=== PATIENT | male | born 1945 | race Caucasian/White ===

== ENCOUNTER 2021-04-15 08:21 | Emergency (ER) | payer OTHER ==
[~2021-04-15] VITALS: Ht 157.5 cm; Wt 55.0 kg
[~2021-04-15 08:21] MED LIST: LEVO50TA8 PO; TERA5CAP4 PO
[2021-04-15 11:06] VITALS: BP 154/84
== END 2021-04-15 11:06 | disposition home or self-care (01) ==
LOC: ER 08:21
DX: H53.8 Other visual disturbances (principal); R03.0 Elevated blood-pressure reading, without diagnosis of hypertension; Z86.16 Personal history of COVID-19
CPT/HCPCS: 99283

== ENCOUNTER 2021-07-24 09:19 | Emergency (ER) | payer OTHER ==
[~2021-07-24] VITALS: Ht 165.1 cm; Wt 73.0 kg
[2021-07-24] MEDS ORDERED: SODIUM CHLORIDE 0.9% 500 ML IV ONE (09:45)
[2021-07-24 10:02] LABS: BASOPHILS % 0.4 % (0.0-2.0); EOSINOPHILS % 1.9 % (0.0-5.0); HEMATOCRIT. 36.9 % (42.0-52.0); HEMOGLOBIN. 12.1 g/dL (14.0-18.0); LYMPHOCYTES % 14.8 % (20.0-50.0); MEAN CORPUSCULAR HEMOGLOBIN 30.6 pg (28.0-32.0); MEAN PLATELET VOLUME 7.1 fl (7.4-10.4); MONOCYTES % 5.8 % (2.0-8.0); NEUTROPHILS % 77.1 % (40.0-76.0); PLATELET 197 x1000/uL (130-400); RED BLOOD CELL COUNT 3.97 mill/uL (4.7-6.1); RED CELL DISTRIBUTION WIDTH 15.5 % (11.6-14.6)
[2021-07-24 10:17] LABS: CHLORIDE 94 mEq/L (98-107)
[2021-07-24 15:01] VITALS: BP 119/64
== END 2021-07-24 15:04 | disposition home or self-care (01) ==
LOC: ER 09:19
DX: E86.0 Dehydration (principal); R55 Syncope and collapse; Z86.19 Personal history of other infectious and parasitic diseases
CPT/HCPCS: 36415; 71045; 80053; 83880; 84484; 85025; 93005; 96360; 99285; J7030

== ENCOUNTER 2023-05-01 12:44 | Inpatient (IN) | payer OTHER ==
[~2023-05-01] VITALS: Ht 160 cm; Wt 55.9 kg
[2023-05-01 14:08] LABS: BASOPHILS % 0.4 % (0.0-2.0); EOSINOPHILS % 0.6 % (0.0-5.0); HEMATOCRIT. 33.4 % (42.0-52.0); HEMOGLOBIN. 11.3 g/dL (14.0-18.0); LYMPHOCYTES % 9.9 % (20.0-50.0); MEAN CORPUSCULAR VOLUME 94.2 fL (80.0-94.0); MEAN PLATELET VOLUME 7.2 fl (7.4-10.4); MONOCYTES % 7.7 % (2.0-8.0); NEUTROPHILS % 81.4 % (40.0-76.0); PLATELET 147 x1000/uL (130-400); RED BLOOD CELL COUNT 3.54 mill/uL (4.7-6.1); RED CELL DISTRIBUTION WIDTH 15.4 % (11.6-14.6)
[2023-05-01 14:13] LABS: CHLORIDE 74 mEq/L (98-107)
[2023-05-01 14:31] LABS: CLARITY URINE TURBID (CLEAR); COLOR URINE YELLOW (YELLOW); KETONES URINE NEGATIVE (NEGATIVE); LEUKOCYTE ESTERASE URINE NEGATIVE (NEGATIVE); NITRITE URINE NEGATIVE (NEGATIVE); OCCULT BLOOD URINE 3+ (NEGATIVE); PROTEIN URINE 2+ (NEGATIVE); SPECIFIC GRAVITY URINE 1.011 (1.005-1.030); UROBILINOGEN URINE 0.2 E.U./dL (0.2-1.0)
[2023-05-01] MEDS ORDERED: METHYLPREDNISOLONE SOD SUCC 125 MG/2 ML VIAL IV STA (14:41)
[2023-05-01] MEDS ORDERED: IPRATROPIUM BROMIDE (0.02%) 0.5MG/2.5ML NEB HHN STA (14:41)
[2023-05-01] MEDS ORDERED: ALBUTEROL (0.083%) 2.5MG/3ML NEB HHN STA (14:41)
[2023-05-01 15:13] LABS: BG BASE EXCESS 13.3 mmol/L (-2.0-2.0); BG CARBOXYHEMOGLOBIN 1.3 % (0.5-1.5); BG DEOXYHEMOGLOBIN 3.1 % (0.0-5.0); BG HCO3 ACT 42.2 mmol/L (22.0-26.0); BG OXYGEN SATURATION 96.9 % (92.0-98.5); BG OXYHEMOGLOBIN 95.6 % (94.0-97.0); BG PCO2 78.9 mmHg (35.0-45.0); BG PH 7.346 (7.350-7.450); BG PO2 100.8 mmHg (75.0-100.0); BG SAMPLE SITE RIGHT RADIAL; BG TOTAL HEMOGLOBIN 12.2 g/dL (12.0-18.0); BG VENT MODE MASK - BIPAP
[2023-05-01] MEDS ORDERED: SODIUM CHLORIDE 0.9% 1,000 ML IV ONE (15:15)
[2023-05-01 19:05] LABS: BG BASE EXCESS 13.5 mmol/L (-2.0-2.0); BG FRACTION INSPIRED OXYGEN 32; BG HCO3 ACT 42.7 mmol/L (22.0-26.0); BG METHEMOGLOBIN 0.1 % (0.0-1.5); BG OXYGEN SATURATION 88.8 % (92.0-98.5); BG OXYHEMOGLOBIN 86.9 % (94.0-97.0); BG PCO2 79.4 mmHg (35.0-45.0); BG PH 7.348 (7.350-7.450); BG SAMPLE SITE LEFT RADIAL; BG TOTAL HEMOGLOBIN 13.1 g/dL (12.0-18.0); BG VENT MODE NASAL CANNULA
[2023-05-01] MEDS ORDERED: LORAZEPAM 2MG/ML CPJ IV PRN (19:15)
[2023-05-02] MEDS ORDERED: IPRATROPIUM/ALBUTEROL 0.5-3(2.5)MG/3ML NEB HHN PRN (08:30)
[2023-05-02] MEDS ORDERED: ACETAMINOPHEN 325MG TABLET PO PRN (08:30)
[2023-05-02] MEDS ORDERED: LEVOFLOXACIN 500MG PREMIX 100 ML IV SCH (09:00)
[2023-05-02 09:36] VITALS: BP 121/70
[2023-05-02 10:13] VITALS: BP 121/70
[2023-05-02] MEDS ORDERED: LORAZEPAM 0.5MG TABLET PO PRN (11:00)
[2023-05-02] MEDS: FAMOTIDINE 20MG TABLET PO SCH ×2 (11:12→21:20)
[2023-05-02] MEDS: ENOXAPARIN 40MG/0.4ML SYR SUBCUT SCH (11:13)
[2023-05-02] MEDS: LEVOTHYROXINE SODIUM 50MCG TABLET PO SCH (11:13)
[2023-05-02] MEDS: METHYLPREDNISOLONE SOD SUCC 40 MG/ML VIAL IV SCH ×3 (11:13→21:20)
[2023-05-02] MEDS: BUDESONIDE 0.5MG/2ML NEB HHN SCH (11:22)
[2023-05-02] MEDS: IPRATROPIUM/ALBUTEROL 0.5-3(2.5)MG/3ML NEB HHN SCH ×3 (11:23→20:07)
[2023-05-02 12:00] VITALS: BP 124/58
[2023-05-02 12:06] LABS: BASOPHILS % 0.1 % (0.0-2.0); EOSINOPHILS % 0.1 % (0.0-5.0); HEMATOCRIT. 34.9 % (42.0-52.0); HEMOGLOBIN. 11.6 g/dL (14.0-18.0); LYMPHOCYTES % 10.2 % (20.0-50.0); MEAN CORPUSCULAR HEMOGLOBIN 31.7 pg (28.0-32.0); MEAN CORPUSCULAR VOLUME 95.3 fL (80.0-94.0); MEAN PLATELET VOLUME 7.6 fl (7.4-10.4); MONOCYTES % 11.1 % (2.0-8.0); NEUTROPHILS % 78.5 % (40.0-76.0); PLATELET 163 x1000/uL (130-400); RED BLOOD CELL COUNT 3.67 mill/uL (4.7-6.1); RED CELL DISTRIBUTION WIDTH 15.8 % (11.6-14.6)
[2023-05-02 12:15] LABS: CHLORIDE 83 mEq/L (98-107)
[2023-05-02] MEDS ORDERED: HYDROCODONE/ACETAMINOPHEN 5/325MG TABLET PO PRN (14:30)
[2023-05-02] MEDS ORDERED: NALOXONE HCL 0.4MG/ML VIAL IV PRN (14:30)
[2023-05-02] MEDS: SODIUM CHLORIDE 0.9% 1,000 ML IV SCH (14:47)
[2023-05-02 16:00] VITALS: BP 121/63
[2023-05-02 19:19] LABS: CHLORIDE 83 mEq/L (98-107)
[2023-05-02 20:00] VITALS: BP 131/60
[2023-05-02] MEDS ORDERED: TERAZOSIN HCL 5MG CAPSULE PO SCH (21:00)
[2023-05-02] MEDS: TERAZOSIN HCL 5MG CAPSULE PO SCH (21:21)
[2023-05-02 22:00] VITALS: BP 84/33
[2023-05-02 23:13] LABS: CHLORIDE 83 mEq/L (98-107)
[2023-05-03] VITALS (12 sets, daily range): BP systolic 84–126; BP diastolic 36–66
[2023-05-03] MEDS: IPRATROPIUM/ALBUTEROL 0.5-3(2.5)MG/3ML NEB HHN SCH ×6 (00:11→20:39)
[2023-05-03] MEDS: BUDESONIDE 0.5MG/2ML NEB HHN SCH ×3 (00:11→20:40)
[2023-05-03] MEDS ORDERED: SODIUM CHLORIDE 0.9% 500 ML IV NR (00:45)
[2023-05-03] MEDS ORDERED: SODIUM CHLORIDE 0.9% 500 ML IV ONE (00:45)
[2023-05-03] MEDS: MIDODRINE HCL 5MG TABLET PO SCH ×3 (00:52→21:26)
[2023-05-03 01:54] LABS: CLARITY URINE CLEAR (CLEAR); COLOR URINE YELLOW (YELLOW); KETONES URINE NEGATIVE (NEGATIVE); LEUKOCYTE ESTERASE URINE NEGATIVE (NEGATIVE); NITRITE URINE NEGATIVE (NEGATIVE); OCCULT BLOOD URINE 3+ (NEGATIVE); PROTEIN URINE 2+ (NEGATIVE); UROBILINOGEN URINE 0.2 E.U./dL (0.2-1.0)
[2023-05-03 02:04] LABS: *AMPHETAMINES SCREEN URINE NEGATIVE (NEGATIVE); *BARBITURATES SCREEN URINE NEGATIVE (NEGATIVE); *BENZODIAZEPINES SCREEN URINE NEGATIVE (NEGATIVE); *COCAINE SCREEN URINE NEGATIVE (NEGATIVE); CANNABINOID URINE SCREEN NEGATIVE (NEGATIVE); METHADONE URINE SCREEN NEGATIVE (NEGATIVE); OPIATES URINE SCREEN PRESUMTIVE POSITIVE (NEGATIVE); PHENCYCLIDINE URINE SCREEN NEGATIVE (NEGATIVE)
[2023-05-03] MEDS: METHYLPREDNISOLONE SOD SUCC 40 MG/ML VIAL IV SCH ×4 (03:43→21:25)
[2023-05-03] MEDS ORDERED: LEVOTHYROXINE SODIUM 50MCG TABLET PO SCH (06:30)
[2023-05-03 06:36] LABS: HEMATOCRIT. 30.3 % (42.0-52.0); HEMOGLOBIN. 10.1 g/dL (14.0-18.0); MEAN CORPUSCULAR VOLUME 95.7 fL (80.0-94.0); MEAN PLATELET VOLUME 7.8 fl (7.4-10.4); PLATELET 141 x1000/uL (130-400); RED BLOOD CELL COUNT 3.17 mill/uL (4.7-6.1); RED CELL DISTRIBUTION WIDTH 15.8 % (11.6-14.6)
[2023-05-03 06:42] LABS: CHLORIDE 88 mEq/L (98-107)
[2023-05-03 06:58] LABS: HDL CHOLESTEROL 93 mg/dL (40-59); LDL CHOLESTEROL 63 mg/dL (5-100)
[2023-05-03] MEDS: FAMOTIDINE 20MG TABLET PO SCH ×2 (08:44→21:25)
[2023-05-03] MEDS: ENOXAPARIN 40MG/0.4ML SYR SUBCUT SCH (08:44)
[2023-05-03] MEDS: LEVOTHYROXINE SODIUM 50MCG TABLET PO SCH (08:44)
[2023-05-03] MEDS: SODIUM CHLORIDE 0.9% 1,000 ML IV SCH (12:59)
[2023-05-03] MEDS ORDERED: IOHEXOL-350 100 ML BOTTLE ONE (14:40)
[2023-05-03] MEDS ORDERED: LEVOFLOXACIN 750MG PREMIX 150 ML IV SCH (15:00)
[2023-05-03 16:26] LABS: CHLORIDE 87 mEq/L (98-107)
[2023-05-03 17:56] LABS: PLATELET ESTIMATE NORMAL
[2023-05-03] MEDS: TERAZOSIN HCL 5MG CAPSULE PO SCH (21:00)
[2023-05-04] VITALS (10 sets, daily range): BP systolic 104–144; BP diastolic 51–72
[2023-05-04] MEDS: IPRATROPIUM/ALBUTEROL 0.5-3(2.5)MG/3ML NEB HHN SCH ×5 (00:12→20:21)
[2023-05-04] MEDS: METHYLPREDNISOLONE SOD SUCC 40 MG/ML VIAL IV SCH ×2 (03:37→08:31)
[2023-05-04] MEDS: MIDODRINE HCL 5MG TABLET PO SCH ×3 (06:00→22:12)
[2023-05-04] MEDS: LEVOTHYROXINE SODIUM 50MCG TABLET PO SCH (06:49)
[2023-05-04 07:27] LABS: HEMATOCRIT. 31.3 % (42.0-52.0); HEMOGLOBIN. 10.5 g/dL (14.0-18.0); MEAN CORPUSCULAR HEMOGLOBIN 32.2 pg (28.0-32.0); MEAN CORPUSCULAR VOLUME 95.9 fL (80.0-94.0); MEAN PLATELET VOLUME 7.9 fl (7.4-10.4); PLATELET 142 x1000/uL (130-400); RED BLOOD CELL COUNT 3.26 mill/uL (4.7-6.1)
[2023-05-04 07:34] LABS: CHLORIDE 86 mEq/L (98-107)
[2023-05-04] MEDS: BUDESONIDE 0.5MG/2ML NEB HHN SCH ×2 (08:17→20:21)
[2023-05-04] MEDS: FAMOTIDINE 20MG TABLET PO SCH ×2 (08:31→21:31)
[2023-05-04] MEDS: ENOXAPARIN 40MG/0.4ML SYR SUBCUT SCH (08:32)
[2023-05-04 10:48] LABS: PLATELET ESTIMATE NORMAL
[2023-05-04] MEDS: SODIUM CHLORIDE 0.9% 1,000 ML IV SCH (13:20)
[2023-05-04] MEDS: PREDNISONE 20MG TABLET PO SCH (16:21)
[2023-05-04] MEDS: TERAZOSIN HCL 5MG CAPSULE PO SCH (21:31)
[2023-05-05] VITALS: BP 111/55
[2023-05-05] MEDS: IPRATROPIUM/ALBUTEROL 0.5-3(2.5)MG/3ML NEB HHN SCH ×4 (01:37→20:35)
[2023-05-05 04:00] VITALS: BP 107/54
[2023-05-05] MEDS: MIDODRINE HCL 5MG TABLET PO SCH ×3 (05:25→22:00)
[2023-05-05] MEDS: LEVOTHYROXINE SODIUM 50MCG TABLET PO SCH (05:46)
[2023-05-05 07:00] LABS: HEMATOCRIT. 29.4 % (42.0-52.0); HEMOGLOBIN. 9.7 g/dL (14.0-18.0); MEAN CORPUSCULAR HEMOGLOBIN 31.6 pg (28.0-32.0); MEAN CORPUSCULAR VOLUME 95.4 fL (80.0-94.0); MEAN PLATELET VOLUME 7.5 fl (7.4-10.4); PLATELET 129 x1000/uL (130-400); RED BLOOD CELL COUNT 3.08 mill/uL (4.7-6.1); RED CELL DISTRIBUTION WIDTH 15.7 % (11.6-14.6)
[2023-05-05 08:00] VITALS: BP 102/48
[2023-05-05] MEDS: BUDESONIDE 0.5MG/2ML NEB HHN SCH (08:10)
[2023-05-05 08:23] LABS: CHLORIDE 85 mEq/L (98-107)
[2023-05-05] MEDS: ENOXAPARIN 40MG/0.4ML SYR SUBCUT SCH (08:40)
[2023-05-05] MEDS: FAMOTIDINE 20MG TABLET PO SCH ×2 (08:41→21:12)
[2023-05-05] MEDS: PREDNISONE 20MG TABLET PO SCH ×2 (08:41→17:50)
[2023-05-05 09:58] LABS: BG BASE EXCESS 17.3 mmol/L (-2.0-2.0); BG FRACTION INSPIRED OXYGEN 40; BG HCO3 ACT 47.6 mmol/L (22.0-26.0); BG METHEMOGLOBIN 0.3 % (0.0-1.5); BG OXYGEN SATURATION 89.9 % (92.0-98.5); BG OXYHEMOGLOBIN 88.7 % (94.0-97.0); BG PCO2 98.9 mmHg (35.0-45.0); BG PO2 59.4 mmHg (75.0-100.0); BG SAMPLE SITE RIGHT RADIAL; BG VENT MODE NASAL CANNULA
[2023-05-05] MEDS: LEVOFLOXACIN 250MG TABLET PO SCH (10:57)
[2023-05-05 12:00] VITALS: BP 103/49
[2023-05-05 13:40] LABS: BG BASE EXCESS 22.6 mmol/L (-2.0-2.0); BG CARBOXYHEMOGLOBIN 0.8 % (0.5-1.5); BG DEOXYHEMOGLOBIN 6.4 % (0.0-5.0); BG FRACTION INSPIRED OXYGEN 35; BG HCO3 ACT 51.8 mmol/L (22.0-26.0); BG METHEMOGLOBIN 0.3 % (0.0-1.5); BG OXYGEN SATURATION 93.5 % (92.0-98.5); BG OXYHEMOGLOBIN 92.5 % (94.0-97.0); BG PCO2 88.9 mmHg (35.0-45.0); BG PH 7.383 (7.350-7.450); BG PO2 67.8 mmHg (75.0-100.0); BG SAMPLE SITE LEFT RADIAL; BG TOTAL HEMOGLOBIN 10.7 g/dL (12.0-18.0); BG TOTAL RESPIRATORY RATE 37 b/min; BG VENT MODE MASK - BIPAP
[2023-05-05 16:00] VITALS: BP 113/62
[2023-05-05 18:00] LABS: PLATELET ESTIMATE SLIGHTLY DECREASED
[2023-05-05 20:00] VITALS: BP 154/71
[2023-05-05] MEDS: TERAZOSIN HCL 5MG CAPSULE PO SCH (21:12)
[2023-05-06] VITALS (12 sets, daily range): BP systolic 97–149; BP diastolic 43–80
[2023-05-06] MEDS: IPRATROPIUM/ALBUTEROL 0.5-3(2.5)MG/3ML NEB HHN SCH ×4 (01:34→20:42)
[2023-05-06] MEDS: MIDODRINE HCL 5MG TABLET PO SCH ×3 (06:00→21:15)
[2023-05-06] MEDS: LEVOTHYROXINE SODIUM 50MCG TABLET PO SCH (06:01)
[2023-05-06] MEDS: ENOXAPARIN 40MG/0.4ML SYR SUBCUT SCH (08:45)
[2023-05-06] MEDS: FAMOTIDINE 20MG TABLET PO SCH (08:45)
[2023-05-06] MEDS: PREDNISONE 20MG TABLET PO SCH ×2 (08:46→17:32)
[2023-05-06 09:10] LABS: BG CARBOXYHEMOGLOBIN 0.8 % (0.5-1.5); BG DEOXYHEMOGLOBIN 4.9 % (0.0-5.0); BG FRACTION INSPIRED OXYGEN 32; BG HCO3 ACT 54.4 mmol/L (22.0-26.0); BG METHEMOGLOBIN 0.3 % (0.0-1.5); BG PCO2 102.4 mmHg (35.0-45.0); BG PH 7.343 (7.350-7.450); BG PO2 79.4 mmHg (75.0-100.0); BG SAMPLE SITE RIGHT BRACHIAL; BG TOTAL HEMOGLOBIN 10.7 g/dL (12.0-18.0); BG VENT MODE NASAL CANNULA
[2023-05-06 13:08] LABS: BG BASE EXCESS 21.5 mmol/L (-2.0-2.0); BG CARBOXYHEMOGLOBIN 0.8 % (0.5-1.5); BG DEOXYHEMOGLOBIN 3.4 % (0.0-5.0); BG FRACTION INSPIRED OXYGEN 35; BG HCO3 ACT 50.4 mmol/L (22.0-26.0); BG METHEMOGLOBIN 0.3 % (0.0-1.5); BG OXYGEN SATURATION 96.6 % (92.0-98.5); BG OXYHEMOGLOBIN 95.5 % (94.0-97.0); BG PCO2 84.4 mmHg (35.0-45.0); BG PH 7.394 (7.350-7.450); BG PO2 91.7 mmHg (75.0-100.0); BG SAMPLE SITE LEFT RADIAL; BG VENT MODE MASK - BIPAP
[2023-05-06] MEDS: TERAZOSIN HCL 5MG CAPSULE PO SCH (21:14)
[2023-05-07] VITALS (8 sets, daily range): BP systolic 102–136; BP diastolic 59–87
[2023-05-07] MEDS: MIDODRINE HCL 5MG TABLET PO SCH ×3 (06:07→21:50)
[2023-05-07] MEDS: IPRATROPIUM/ALBUTEROL 0.5-3(2.5)MG/3ML NEB HHN SCH ×4 (08:08→20:59)
[2023-05-07 08:22] LABS: BG BASE EXCESS 27.1 mmol/L (-2.0-2.0); BG CARBOXYHEMOGLOBIN 1.1 % (0.5-1.5); BG FRACTION INSPIRED OXYGEN 36; BG HCO3 ACT 60.1 mmol/L (22.0-26.0); BG METHEMOGLOBIN 0.2 % (0.0-1.5); BG OXYHEMOGLOBIN 96.7 % (94.0-97.0); BG PCO2 134.9 mmHg (35.0-45.0); BG PH 7.267 (7.350-7.450); BG PO2 136.1 mmHg (75.0-100.0); BG SAMPLE SITE LEFT RADIAL; BG TOTAL HEMOGLOBIN 11.3 g/dL (12.0-18.0); BG VENT MODE NASAL CANNULA
[2023-05-07] MEDS: FAMOTIDINE 20MG TABLET PO SCH (08:46)
[2023-05-07] MEDS: LEVOTHYROXINE SODIUM 50MCG TABLET PO SCH (08:46)
[2023-05-07] MEDS: PREDNISONE 20MG TABLET PO SCH ×2 (08:47→16:46)
[2023-05-07] MEDS: ENOXAPARIN 40MG/0.4ML SYR SUBCUT SCH (08:48)
[2023-05-07] MEDS: LEVOFLOXACIN 250MG TABLET PO SCH (11:04)
[2023-05-07 12:19] LABS: BG BASE EXCESS 23.5 mmol/L (-2.0-2.0); BG CARBOXYHEMOGLOBIN 0.4 % (0.5-1.5); BG DEOXYHEMOGLOBIN 3.2 % (0.0-5.0); BG HCO3 ACT 52.2 mmol/L (22.0-26.0); BG METHEMOGLOBIN 0.3 % (0.0-1.5); BG OXYGEN SATURATION 96.8 % (92.0-98.5); BG OXYHEMOGLOBIN 96.1 % (94.0-97.0); BG PCO2 84.2 mmHg (35.0-45.0); BG PO2 93.2 mmHg (75.0-100.0); BG SAMPLE SITE RIGHT BRACHIAL; BG TOTAL HEMOGLOBIN 10.5 g/dL (12.0-18.0); BG VENT MODE MASK - BIPAP
[2023-05-07] MEDS: TERAZOSIN HCL 5MG CAPSULE PO SCH (21:50)
[2023-05-08] VITALS: BP 120/74
[2023-05-08] MEDS: IPRATROPIUM/ALBUTEROL 0.5-3(2.5)MG/3ML NEB HHN SCH ×4 (02:01→18:00)
[2023-05-08 04:00] VITALS: BP 114/78
[2023-05-08] MEDS: LEVOTHYROXINE SODIUM 50MCG TABLET PO SCH (06:34)
[2023-05-08] MEDS: MIDODRINE HCL 5MG TABLET PO SCH ×2 (06:35→14:00)
[2023-05-08 08:00] VITALS: BP_SYST 125; BP_SYST 94; BP_DIAS 57; BP_DIAS 61
[2023-05-08 08:58] LABS: BG BASE EXCESS 27.8 mmol/L (-2.0-2.0); BG CARBOXYHEMOGLOBIN 1.1 % (0.5-1.5); BG DEOXYHEMOGLOBIN 3.9 % (0.0-5.0); BG FRACTION INSPIRED OXYGEN 32; BG HCO3 ACT 60.5 mmol/L (22.0-26.0); BG METHEMOGLOBIN 0.1 % (0.0-1.5); BG OXYGEN SATURATION 96.1 % (92.0-98.5); BG OXYHEMOGLOBIN 94.9 % (94.0-97.0); BG PH 7.299 (7.350-7.450); BG PO2 89.2 mmHg (75.0-100.0); BG SAMPLE SITE RIGHT BRACHIAL; BG TOTAL HEMOGLOBIN 11.7 g/dL (12.0-18.0); BG VENT MODE NASAL CANNULA
[2023-05-08] MEDS: PREDNISONE 20MG TABLET PO SCH ×2 (11:11→17:00)
[2023-05-08] MEDS: ENOXAPARIN 40MG/0.4ML SYR SUBCUT SCH (11:11)
[2023-05-08] MEDS: FAMOTIDINE 20MG TABLET PO SCH (11:12)
[2023-05-08 12:00] VITALS: BP_SYST 106; BP_SYST 115; BP_DIAS 54; BP_DIAS 59
[2023-05-08 16:00] VITALS: BP 120/58
[2023-05-08 20:00] VITALS: BP 111/61
[2023-05-09] VITALS: BP 103/52
[2023-05-09] MEDS: MIDODRINE HCL 5MG TABLET PO SCH ×4 (00:47→21:39)
[2023-05-09] MEDS: TERAZOSIN HCL 5MG CAPSULE PO SCH ×2 (00:47→21:39)
[2023-05-09] MEDS: IPRATROPIUM/ALBUTEROL 0.5-3(2.5)MG/3ML NEB HHN SCH ×4 (01:44→21:14)
[2023-05-09 04:00] VITALS: BP 129/56
[2023-05-09] MEDS: LEVOTHYROXINE SODIUM 50MCG TABLET PO SCH (06:48)
[2023-05-09 08:00] VITALS: BP 119/59
[2023-05-09] MEDS: PREDNISONE 20MG TABLET PO SCH ×2 (08:51→17:45)
[2023-05-09] MEDS: ENOXAPARIN 40MG/0.4ML SYR SUBCUT SCH (08:51)
[2023-05-09] MEDS: FAMOTIDINE 20MG TABLET PO SCH (08:51)
[2023-05-09 12:00] VITALS: BP 108/65
[2023-05-09 16:00] VITALS: BP 110/57
[2023-05-09] MEDS ORDERED: LACTULOSE 20G/30ML UDC PO NR (16:00)
[2023-05-09 20:00] VITALS: BP 142/62
[2023-05-10] VITALS: BP_SYST 110; BP_SYST 112; BP_DIAS 55; BP_DIAS 59
[2023-05-10 04:00] VITALS: BP 120/59
[2023-05-10] MEDS: MIDODRINE HCL 5MG TABLET PO SCH ×3 (06:00→22:00)
[2023-05-10] MEDS: LEVOTHYROXINE SODIUM 50MCG TABLET PO SCH (07:04)
[2023-05-10 08:00] VITALS: BP 103/51
[2023-05-10] MEDS: PREDNISONE 20MG TABLET PO SCH ×2 (08:52→16:47)
[2023-05-10] MEDS: ENOXAPARIN 40MG/0.4ML SYR SUBCUT SCH (08:53)
[2023-05-10] MEDS: FAMOTIDINE 20MG TABLET PO SCH (08:53)
[2023-05-10] MEDS: DOCUSATE SODIUM 250MG CAPSULE PO SCH (08:53)
[2023-05-10 12:00] VITALS: BP 86/45
[2023-05-10 16:00] VITALS: BP 103/49
[2023-05-10] MEDS: TERAZOSIN HCL 5MG CAPSULE PO SCH (20:37)
[2023-05-11 04:00] VITALS: BP 132/67
[2023-05-11] MEDS: MIDODRINE HCL 5MG TABLET PO SCH ×3 (05:35→17:32)
[2023-05-11] MEDS: LEVOTHYROXINE SODIUM 50MCG TABLET PO SCH (05:39)
[2023-05-11 08:00] VITALS: BP 130/67
[2023-05-11] MEDS: FAMOTIDINE 20MG TABLET PO SCH (08:46)
[2023-05-11] MEDS: DOCUSATE SODIUM 250MG CAPSULE PO SCH (08:50)
[2023-05-11] MEDS: ENOXAPARIN 40MG/0.4ML SYR SUBCUT SCH (08:50)
[2023-05-11] MEDS: PREDNISONE 20MG TABLET PO SCH ×2 (08:50→17:32)
[2023-05-11 12:00] VITALS: BP 120/68
[2023-05-11 16:00] VITALS: BP 98/50
[2023-05-11] MEDS ORDERED: FLUT1DIS3 INH (16:33)
[2023-05-11] MEDS ORDERED: ALBU18HF2 IH (16:33)
[2023-05-11 17:10] VITALS: BP 98/50
== END 2023-05-11 20:20 | disposition home or self-care (01) | DRG 73 ==
LOC: ER 12:44 → EDBEDREQ 16:28 → MICUSO 16:29 → 5EST 05-02 08:16 → 8WST 05-07 20:42
PROVIDERS: ADMIT Internal Medicine; ATTEND Internal Medicine
PROC: 5A09357 Assistance with Respiratory Ventilation, Less than 24 Consecutive Hours, Continuous Positive Airway Pressure (ICD-10-PCS; principal; 2023-05-01)
PROC: 5A09357 Assistance with Respiratory Ventilation, Less than 24 Consecutive Hours, Continuous Positive Airway Pressure (ICD-10-PCS; 2023-05-02)
PROC: 5A09357 Assistance with Respiratory Ventilation, Less than 24 Consecutive Hours, Continuous Positive Airway Pressure (ICD-10-PCS; 2023-05-03)
PROC: 5A09357 Assistance with Respiratory Ventilation, Less than 24 Consecutive Hours, Continuous Positive Airway Pressure (ICD-10-PCS; 2023-05-04)
PROC: 5A09357 Assistance with Respiratory Ventilation, Less than 24 Consecutive Hours, Continuous Positive Airway Pressure (ICD-10-PCS; 2023-05-05)
PROC: 5A09357 Assistance with Respiratory Ventilation, Less than 24 Consecutive Hours, Continuous Positive Airway Pressure (ICD-10-PCS; 2023-05-06)
PROC: 5A09357 Assistance with Respiratory Ventilation, Less than 24 Consecutive Hours, Continuous Positive Airway Pressure (ICD-10-PCS; 2023-05-07)
DX: G90.8 Other disorders of autonomic nervous system (principal); J96.22 Acute and chronic respiratory failure with hypercapnia; J44.1 Chronic obstructive pulmonary disease with (acute) exacerbation; J84.9 Interstitial pulmonary disease, unspecified; E87.1 Hypo-osmolality and hyponatremia; I27.82 Chronic pulmonary embolism; I95.9 Hypotension, unspecified; E03.9 Hypothyroidism, unspecified; I10 Essential (primary) hypertension; L89.156 Pressure-induced deep tissue damage of sacral region; F41.1 Generalized anxiety disorder; D64.9 Anemia, unspecified; F41.9 Anxiety disorder, unspecified; Z20.822 Contact with and (suspected) exposure to COVID-19; N40.0 Benign prostatic hyperplasia without lower urinary tract symptoms; Z86.16 Personal history of COVID-19; Z99.81 Dependence on supplemental oxygen; Z79.899 Other long term (current) drug therapy
CPT/HCPCS: 36415; 36600; 71045; 71275; 76770; 80048; 80053; 80061; 80305; 81003; 82375; 82805; 82962; 83880; 83935; 84443; 84484; 85025; 87426; 93005; 93306; 93880; 93970; 94640; 94660; 97116; 97162; 99291; C9803; J1650; J1956; J2060; J2920; J2930; J7030; J7512; J7626; Q9967

== ENCOUNTER 2025-04-05 06:57 | Emergency (ER) | payer MEDICARE, OTHER ==
[~2025-04-05] VITALS: Ht 165.1 cm; Wt 60.0 kg
[~2025-04-05 06:57] MED LIST changes: +ALBU18HF2 IH; +ATOR10TA69 MT; +FINA5TAB11 MT; +FLUT1DIS3 INH; +TAMS-54 MT
[2025-04-05] MEDS ORDERED: EPINEPHRINE 0.1MG/ML (1:10,000) 10ML SYR ONE (07:00)
[2025-04-05 07:06] VITALS: PULSE 96; RESP 14
[2025-04-05 07:15] VITALS: BP 46/19; PULSE 60; RESP 14
[2025-04-05] MEDS ORDERED: ETOMIDATE 2MG/ML 10ML VIAL IV ONE (07:30)
[2025-04-05] MEDS ORDERED: NOREPINEPHRINE 8MG/250ML PMX 250 ML IV PRN (07:30)
[2025-04-05] MEDS ORDERED: MIDAZOLAM HCL 100 MG in DEXT 5% WATER 80 ML IV ONE (07:30)
[2025-04-05] MEDS ORDERED: SODIUM CHLORIDE 0.9% (SEPSIS BOLUS) IV ONE (07:30)
[2025-04-05] MEDS ORDERED: ACETAMINOPHEN 650MG/20.3ML UDC NG PRN (07:30)
[2025-04-05] MEDS ORDERED: PIPERACILLIN/TAZO 3.375G/50ML 50 ML IV ONE (07:30)
[2025-04-05] MEDS ORDERED: ACETAMINOPHEN 650MG SUPP PR PRN (07:30)
[2025-04-05] MEDS ORDERED: VANCOMYCIN 1G PREMIX 200 ML IV ONE (07:30)
[2025-04-05] MEDS ORDERED: SUCCINYLCHOLINE CHLORIDE 200MG/10ML IV ONE (07:30)
[2025-04-05] MEDS ORDERED: FENTANYL CITRATE/PF 50MCG/ML 2ML VIAL IV ONE (07:30)
[2025-04-05] MEDS ORDERED: VASOPRESSIN 20 UNIT in SODIUM CHLORIDE 0.9% 99 ML STA (07:32)
[2025-04-05] MEDS ORDERED: DOPAMINE 400MG/250ML PREMIX 250 ML IV ONE (07:43)
[2025-04-05] MEDS ORDERED: VASOPRESSIN 20 UNIT in SODIUM CHLORIDE 0.9% 99 ML IV PRN (07:45)
[2025-04-05] MEDS ORDERED: MIDAZOLAM 100MG/100ML PREMIX IV PRN (07:45)
[2025-04-05 08:12] LABS: CHLORIDE 110 mEq/L (98-107); INR 1.4; POTASSIUM 3.6 mEq/L (3.5-5.1); PROTHROMBIN TIME 14.8 sec (9.6-11.0); SODIUM 145 mEq/L (136-145)
[2025-04-05 08:13] LABS: CARBON DIOXIDE 21 mEq/L (21-32)
[2025-04-05 08:14] LABS: BASOPHILS % 0.1 % (0.0-2.0); DIFFERENTIAL COMMENT 0; EOSINOPHILS % 0.3 % (0.0-5.0); HEMATOCRIT. 27.8 % (42.0-52.0); HEMOGLOBIN. 8.2 g/dL (14.0-18.0); LYMPHOCYTES % 21.2 % (20.0-50.0); MEAN CORPUSCULAR HEMOGLOBIN 29.3 pg (28.0-32.0); MEAN CORPUSCULAR HGB CONC 29.6 g/dL (31.0-37.0); MEAN CORPUSCULAR VOLUME 98.9 fL (80.0-94.0); MEAN PLATELET VOLUME 8.1 fl (7.4-10.4); MONOCYTES % 4.4 % (2.0-8.0); PLATELET 104 x1000/uL (130-400); RED BLOOD CELL COUNT 2.81 mill/uL (4.7-6.1); RED CELL DISTRIBUTION WIDTH 18.5 % (11.6-14.6); WHITE BLOOD COUNT 16.3 x1000/uL (4.5-11.0)
[2025-04-05 08:18] LABS: CREATININE 0.7 mg/dL (0.6-1.3); GLUCOSE 205 mg/dL (70-105); UREA NITROGEN BLOOD 16 mg/dL (9-23)
[2025-04-05 08:20] LABS: ALANINE AMINOTRANSFERASE 219 IU/L (10-49); ALBUMIN 1.7 g/dL (3.2-4.8); ASPARTATE AMINOTRANSFERASE 184 IU/L (<34); BILIRUBIN DIRECT 0.1 mg/dL (<=3.0); PHOSPHORUS 5.6 mg/dL (2.5-4.9)
[2025-04-05 08:21] LABS: BILIRUBIN TOTAL 0.5 mg/dL (0.1-1.0)
[2025-04-05 08:31] LABS: LACTIC ACID 10.6 mmol/L (0.4-2.0)
[2025-04-05 08:34] LABS: CALCIUM 5.1 mg/dL (8.7-10.4); PROTEIN TOTAL 2.9 g/dL (6.0-8.3)
[2025-04-05 08:35] LABS: TROPONIN I HIGH SENSITIVITY 65 ng/L (3.0-53)
== END 2025-04-05 08:22 ==
LOC: ER 06:57
DX: I46.9 Cardiac arrest, cause unspecified (principal); J44.9 Chronic obstructive pulmonary disease, unspecified; Z79.899 Other long term (current) drug therapy; Z98.890 Other specified postprocedural states
CPT/HCPCS: 36556; 80076; 80048; 82962; 83605; 83735; 84100; 85025; 85610; 87040; 87076; 84484; 36415; 84145; 31500; 92950; 99285; 71045; 93005; J3490 ×3; J2543; J0330; J7030; J1265; 94002; 94070; J2250; J7050; J7060